=== PATIENT | female | born 1980 | race Two or more races ===

== ENCOUNTER 2019-02-12 17:52 | Emergency (ER) | payer MEDICAID ==
[~2019-02-12] VITALS: Ht 180.3 cm; Wt 136.1 kg
[2019-02-12 18:00] VITALS: BP 133/72
--- NOTE | 2019-02-12 18:22 | PHYS DOC ---
Past Medical History Past Medical History: Diabetes-Type II, Hypertension, Hypothyroid (THANIA LEAHY) Past Surgical History: No Surgical History (THANIA LEAHY) Alcohol Use: None Drug Use: None (THANIA LEAHY) Attending Signature I have participated in the care of this patient and I have reviewed and agree with all pertinent clinical information above including history, exam, and recommendations. (DIAMOND LARSEN MD) Adult General Chief Complaint Chief Complaint: COUGH HPI HPI Patient is a 39 year old F who is here today with cough, congestion, fever and body aches that started this morning. Her kids are at home and dx with influenza and on Tamiflu. (THANIA LEAHY) Review of Systems Review of Systems Constitutional: Reports fever and chills. Eyes: Denies change in visual acuity, redness, or eye pain HENT: Reports nasal congestion and sore throat Respiratory: Reports cough . Denies shortness of breath Cardiovascular: Denies chest pain GI: Denies abdominal pain, nausea, vomiting, bloody stools or diarrhea : Denies dysuria or hematuria Musculoskeletal: Denies back pain or neck pain. Reports body aches. Integument: Denies rash or skin lesions Neurologic: Denies headache, focal weakness or sensory changes All other systems were reviewed and found to be within normal limits, except as documented in this note. (THANIA LEAHY) Allergies Allergies Allergies Coded Allergies Type Severity Reaction Last Updated Verified No Known Drug Allergies 02/12/19 No (DIAMOND LARSEN MD) Physical Exam Physical Exam Constitutional: Well developed, well nourished, no acute distress, non-toxic appearance. HENT: Normocephalic, atraumatic, bilateral external ears normal. Clear nasal drainage, mild erythema of oropharynx. Eyes: PERRLA, EOMI, conjunctiva normal, no discharge. Neck: Normal range of motion, no tenderness, supple, no stridor. Cardiovascular:Heart rate regular rhythm, no murmur Lungs & Thorax: Bilateral breath sounds clear to auscultation . Hard cough noted. Abdomen: Bowel sounds normal, soft, no tenderness, no masses, no pulsatile masses. Skin: Warm, dry, no erythema, no rash. Back: No tenderness, no CVA tenderness. Extremities: No tenderness, no cyanosis, no clubbing, ROM intact, no edema. Neurologic: Alert and oriented X 3, normal motor function, normal sensory function, no focal deficits noted. Psychologic: Affect normal, judgement normal, mood normal. (THANIA LEAHY) Current Patient Data Vital Signs Vital Signs Date Time Temp Pulse Resp B/P (MAP) Pulse Ox O2 Delivery O2 Flow Rate FiO2 02/12/19 18:00 98.7 90 18 133/72 (92) 96 Room Air 98.7 (DIAMOND LARSEN MD) Lab Values Laboratory Tests Test 02/12/19 18:05 Influenza Type A Antigen Negative (NEGATIVE) Influenza Type B Antigen Negative (NEGATIVE) (DIAMOND LARSEN MD) Lab Values Laboratory Tests Test 02/12/19 18:05 Influenza Type A Antigen Negative (NEGATIVE) Influenza Type B Antigen Negative (NEGATIVE) (THANIA LEAHY) EKG EKG [] (THANIA LEAHY) Radiology/Procedures Radiology/Procedures [] (THANIA LEAHY) Course & Med Decision Making Course & Med Decision Making Pertinent Labs and Imaging studies reviewed. (See chart for details) Pt's flu swab is negative, but kids at home are positive for influenza and on Tamiflu. Will cover at this time due to pt request. Discussed pushing fluids and rest and OCT cough and cold remedies. Pt to return with any worsening symptoms. (THANIA LEAHY) Dragon Disclaimer Dragon Disclaimer This electronic medical record was generated, in whole or in part, using a voice recognition dictation system. (THANIA LEAHY) Departure Departure Impression: Primary Impression: Influenza Disposition: 01 HOME, SELF-CARE Condition: STABLE Referrals: NO PCP (PCP) Patient Instructions: Influenza A (H1N1) Additional Instructions: Your swabs today were negative for flu, however with children at home who were positive, it is highly likely that you also have influenza and the viral load was not high enough to test positive at this time. We will treat you for flu. Scripts Codeine Phosphate/Guaifenesin (Guaifen-Codeine 200-20 mg/10Ml) 10 Ml Liquid 10 ML PO Q6-8HRS PRN for COUGH for 7 Days, #120 LIQUID Prov: THANIA LEAHY 02/12/19 Oseltamivir Phosphate (TAMIFLU) 75 Mg Capsule 1 CAP PO BID, #10 CAP Prov: TAHNIA LEAHY 02/12/19 THANIA LEAHY Feb 12, 2019 18:22 DIAMOND LARSEN MD Feb 15, 2019 18:07
[2019-02-12 18:35] LABS: INFLUENZA A PATIENT NEGATIVE (NEGATIVE); INFLUENZA B PATIENT NEGATIVE (NEGATIVE)
[2019-02-12] MEDS ORDERED: CODE10LI PO (19:09)
[2019-02-12] MEDS ORDERED: OSEL75CA PO (19:09)
== END 2019-02-12 19:40 | disposition home or self-care (01) ==
LOC: ER 17:52
DX: J11.1 Influenza due to unidentified influenza virus with other respiratory manifestations (principal); E11.9 Type 2 diabetes mellitus without complications; E03.9 Hypothyroidism, unspecified; I10 Essential (primary) hypertension
CPT/HCPCS: 87804; 99284

== ENCOUNTER 2019-07-24 11:02 | Emergency (ER) | payer MEDICAID, OTHER ==
[~2019-07-24] VITALS: Ht 180.3 cm; Wt 140.0 kg
[~2019-07-24 11:02] MED LIST: CODE10LI PO; OSEL75CA PO
[2019-07-24 11:10] VITALS: BP 142/81
[2019-07-24] MEDS ORDERED: HYDROcodone/APAP 5/325MG 1 TAB TABLET PO ONE (12:15)
--- NOTE | 2019-07-24 12:25 | PHYS DOC ---
Past Medical History Past Medical History: Diabetes-Type II Additional Past Medical Histor: DMII "BUT NOT ANYMORE" Past Surgical History: Other Additional Past Surgical Histo: LEFT LEG Smoking Status: Never Smoker Alcohol Use: Sober Drug Use: None General Adult EDM: Chief Complaint: LOWER EXT PAIN HPI: HPI: Patient is a 39 year old female who presents with patient states that she has right behind the knee pain that sometimes will radiate down and sometimes radiate up and is hard to walk on the extremity due to this. She states that sharp and shooting. It is anytime she moves the knee or walks. Denies injury. Is been like this for the last week. She states she is been taking ibuprofen with no relief. Patient denies coolness of the extremity, temperature change, skin color change, numbness or tingling, chest pain, shortness of air, Abdominal pain, nausea, vomiting, diarrhea, cough, fever. Patient rates her pain 8 out of 10. Review of Systems: Review of Systems: Musculoskeletal: Denies back pain. Right knee joint pain. [] Heart Score: Risk Factors: Risk Factors: DM, Current or recent (<one month) smoker, HTN, HLP, family history of CAD, obesity. Risk Scores: Score 0 - 3: 2.5% MACE over next 6 weeks - Discharge Home Score 4 - 6: 20.3% MACE over next 6 weeks - Admit for Clinical Observation Score 7 - 10: 72.7% MACE over next 6 weeks - Early Invasive Strategies Current Medications: Current Medications Medications (Trade) Dose Ordered Sig/[facility] Start Time Stop Time Status Last Admin Dose Admin Acetaminophen/ Hydrocodone Bitart (Lortab 5/325) 1 tab 1X ONCE 07/24/19 12:15 07/24/19 12:16 DC Allergies: Allergies: Allergies Coded Allergies Type Severity Reaction Last Updated Verified No Known Drug Allergies 02/12/19 No Physical Exam: PE: Constitutional: Well developed, well nourished, no acute distress, non-toxic appearance. [] HENT: Normocephalic, atraumatic, bilateral external ears normal, oropharynx moist, no oral exudates, nose normal. [] Eyes: PERRLA, EOMI, conjunctiva normal, no discharge. [] Neck: Normal range of motion, no tenderness, supple, no stridor. [] Cardiovascular:Heart rate regular rhythm, no murmur [] Lungs & Thorax: Bilateral breath sounds clear to auscultation [] Abdomen: Bowel sounds normal, soft, no tenderness, no masses, no pulsatile masses. [] Skin: Warm, dry, no erythema, no rash. [] Back: No tenderness, no CVA tenderness. [] Extremities: No tenderness, no cyanosis, no clubbing, ROM intact, no edema. [] Neurologic: Alert and oriented X 3, normal motor function, normal sensory function, no focal deficits noted. [] Psychologic: Affect normal, judgement normal, mood normal. [] Normal physical exam Current Patient Data: Vital Signs: Vital Signs Date Time Temp Pulse Resp B/P (MAP) Pulse Ox O2 Delivery O2 Flow Rate FiO2 07/24/19 11:10 97.6 73 16 142/81 (101) 97 Room Air 97.6 EKG: EKG: [] Radiology/Procedures: Radiology/Procedures: [] Impression: [facility] [address] [place], [place] [id number] IMAGING REPORT Signed PATIENT: FRANCISCO ARRIETA ACCOUNT: [id number] : 1980 LOCATION: ER AGE: 39 SEX: F EXAM STATUS: REG ER ORD. PHYSICIAN: BERENICE BERNARDO APRN REASON: pain behind right leg, check for DVT and Bakers cyst PROCEDURE: VENOUS LOWER EXTREMITY RIGHT VENOUS LOWER EXTREMITY RIGHT 07/24/2019 12:05 PM Pain behind the right leg Reason: pain behind right leg, check for DVT and Bakers cyst Comparison: None. Technique: Multiple grayscale, color Doppler, and spectral Doppler sonographic images of the lower extremity venous structures were obtained. Findings: The right common femoral, femoral, and popliteal veins exhibit normal compression, respiratory phasicity, and augmentation. No intraluminal thrombi are identified. Color Doppler flow is demonstrated in the right posterior tibial veins. Popliteal cyst measures 3.8 x 2.9 x 1.2 cm without significant internal complexity. Greater saphenous patent at the saphenofemoral junction. Impression: 1. No evidence of deep venous thrombosis. 2. Simple popliteal cyst measures 3.8 x 2.9 x 1.2 cm. Electronically signed by: Dorys Darden MD (07/24/2019 12:34 PM) [facility] DICTATED and SIGNED BY: DORYS DARDEN MD DATE: 07/24/19 1234 Course & Med Decision Making: Course & Med Decision Making Pertinent Labs and Imaging studies reviewed. (See chart for details) No unilateral swelling. Skin pink warm and dry. Pedal pulses present. Cap refill less than 3 seconds. Full range of motion of the knee joint without complication but pain does occur behind the knee with movement. Lungs are clear auscultation all lobes. Patient states she is to be diabetic but is no longer diabetic. Full sensations. Patient did have to have surgery on the left leg years ago and she states that leg chronically hurts. No calf tenderness with palpation. Perc negative. [] Dragon Disclaimer: Dragon Disclaimer: This electronic medical record was generated, in whole or in part, using a voice recognition dictation system. Departure Departure Impression: Primary Impression: Nash's cyst of knee Qualified Codes: M71.21 - Synovial cyst of popliteal space [Nash], right knee Disposition: HOME, SELF-CARE Condition: STABLE Referrals: NO PCP (PCP) Patient Instructions: Nash's Cyst Additional Instructions: Follow-up with your primary care doctor or the orthopedic doctor. Take medication as prescribed and with food. Do not drink alcohol or drive heavy machinery when taking this medication. Scripts Hydrocodone/Apap 5-325 (NORCO 5-325 TABLET) 1 Each Tablet 1 TAB PO PRN Q6HRS PRN for PAIN, #10 TAB 0 Refills Prov: BERENICE BERNARDO APRN 07/24/19 Justicifation of Admission Dx: Justifications for Admission: Justification of Admission Dx: N/A BERENICE BERNARDO APRN Jul 24, 2019 12:25
--- NOTE | 2019-07-24 12:37 | RAD ---
VENOUS LOWER EXTREMITY RIGHT 07/24/2019 12:05 PM Pain behind the right leg Reason: pain behind right leg, check for DVT and Bakers cyst Comparison: None. Technique: Multiple grayscale, color Doppler, and spectral Doppler sonographic images of the lower extremity venous structures were obtained. Findings: The right common femoral, femoral, and popliteal veins exhibit normal compression, respiratory phasicity, and augmentation. No intraluminal thrombi are identified. Color Doppler flow is demonstrated in the right posterior tibial veins. Popliteal cyst measures 3.8 x 2.9 x 1.2 cm without significant internal complexity. Greater saphenous patent at the saphenofemoral junction. Impression: 1. No evidence of deep venous thrombosis. 2. Simple popliteal cyst measures 3.8 x 2.9 x 1.2 cm. Electronically signed by: Debbi Odonnell MD (07/24/2019 12:34 PM) [facility]
[2019-07-24] MEDS ORDERED: HYDR-3164 PO (12:44)
== END 2019-07-24 12:50 | disposition home or self-care (01) ==
LOC: ER 11:02
DX: M71.21 Synovial cyst of popliteal space [Baker], right knee (principal); E11.9 Type 2 diabetes mellitus without complications
CPT/HCPCS: 93971; 99284

== ENCOUNTER 2019-09-17 18:50 | Emergency (ER) | payer OTHER ==
[~2019-09-17] VITALS: Ht 180.3 cm; Wt 181.8 kg
[~2019-09-17 18:50] MED LIST changes: +HYDR-3164 PO
[2019-09-17] MEDS ORDERED: ACETAMINOPHEN 500 MG TABLET PO ONE (20:00)
[2019-09-17] MEDS ORDERED: DEXAMETHASONE 4 MG TABLET PO ONE (20:00)
[2019-09-17 20:16] LABS: BILIRUBIN,URINE NEGATIVE (NEG); CLARITY,URINE CLEAR; COLOR,URINE YELLOW; NITRITE,URINE NEGATIVE (NEG); PH,URINE 5.5 (<5.0-8.0); PROTEIN,URINE NEGATIVE (NEG-TRACE); UROBILINOGEN,URINE 0.2 mg/dL (0.2 mg/dL)
[2019-09-17 20:23] LABS: SQUAMOUS EPITHELIAL CELL,UR MOD /LPF
[2019-09-17 20:24] LABS: BACTERIA,URINE MANY /HPF (0-FEW)
--- NOTE | 2019-09-17 20:37 | RAD ---
AP chest. HISTORY: Cough, short of air AP view was taken of the chest. Heart is normal in size. There is no pleural effusion. There are no acute infiltrates. IMPRESSION: 1. No acute infiltrates. Electronically signed by: Jean Cho MD (09/17/2019 8:34 PM) [facility]
--- NOTE | 2019-09-17 20:43 | PHYS DOC ---
Past Medical History Past Medical History: Diabetes-Type II Additional Past Medical Histor: DMII "BUT NOT ANYMORE" Past Surgical History: Other Additional Past Surgical Histo: LEFT LEG Smoking Status: Never Smoker Alcohol Use: Sober Drug Use: None General Adult EDM: Chief Complaint: SHORTNESS OF BREATH HPI: HPI: 39-year-old female presents with 2-day history of fever, fatigue, nonproductive cough, and shortness of breath. Patient denies known exposure to COVID-19. Patient reports she works at [employer]. Patient reports concerned that she might have been exposed to COVID. Denies . Denies trauma. Review of Systems: Review of Systems: Constitutional: Reports subjective fever, chills, and generalized malaise Eyes: Denies redness or eye pain HENT: Denies nasal congestion or sore throat Respiratory: Reports nonproductive cough and shortness of breath Cardiovascular: Denies chest pain or palpitations GI: Denies abdominal pain, nausea, or vomiting : Denies dysuria or hematuria Musculoskeletal: Denies back pain or joint pain Integument: Denies rash or skin lesions Neurologic: Denies headache, focal weakness or sensory changes Complete systems were reviewed and found to be within normal limits, except as documented in this note. Current Medications: Current Medications Medications (Trade) Dose Ordered Sig/[facility] Start Time Stop Time Status Last Admin Dose Admin Acetaminophen (Tylenol) 500 mg 1X ONCE 09/17/19 20:00 09/17/19 20:01 DC 09/17/19 19:58 500 MG Dexamethasone (Decadron) 10 mg 1X ONCE 09/17/19 20:00 09/17/19 20:01 DC 09/17/19 19:58 10 MG Allergies: Allergies: Allergies Coded Allergies Type Severity Reaction Last Updated Verified No Known Drug Allergies 02/12/19 No Physical Exam: PE: Constitutional: Well developed, well nourished, no acute distress, non-toxic appearance HENT: Normocephalic, atraumatic Eyes: Conjunctiva normal, no discharge Neck: Normal range of motion, supple, no meningeal signs Lungs & Thorax: No respiratory distress, equal chest rise and fall Abdomen: Soft, no tenderness, no guarding/rebound tenderness/distention Skin: Warm, dry, no erythema, no rash Extremities: No tenderness, ROM intact, no edema Neurologic: Alert and oriented X 3, no focal deficits noted Psychologic: Affect normal, judgment normal Current Patient Data: Labs: Laboratory Tests Test 09/17/19 20:02 09/17/19 20:09 Urine Collection Type Unknown Urine Color Yellow Urine Clarity Clear Urine pH 5.5 (<5.0-8.0) Urine Specific [place] 1.020 (1.000-1.030) Urine Protein Negative mg/dL (NEG-TRACE) Urine Glucose (UA) Negative mg/dL (NEG) Urine Ketones (Stick) Negative mg/dL (NEG) Urine Blood Small (NEG) Urine Nitrite Negative (NEG) Urine Bilirubin Negative (NEG) Urine Urobilinogen Dipstick 0.2 mg/dL (0.2 mg/dL) Urine Leukocyte Esterase Small (NEG) Urine RBC 3-5 /HPF (0-2) Urine WBC 1-4 /HPF (0-4) Urine Squamous Epithelial Cells Mod /LPF Urine Bacteria Many /HPF (0-FEW) Urine Mucus Mod /LPF POC Urine HCG, Qualitative Hcg negative (Negative) EKG: EKG: [] Radiology/Procedures: Radiology/Procedures: PROCEDURE: CHEST AP ONLY AP chest. HISTORY: Cough, short of air AP view was taken of the chest. Heart is normal in size. There is no pleural effusion. There are no acute infiltrates. IMPRESSION: 1. No acute infiltrates. Electronically signed by: Jean Cho MD (09/17/2019 8:34 PM) [facility] Course & Med Decision Making: Course & Med Decision Making Pertinent Labs and Imaging studies reviewed. (See chart for details) Patient presents with HPI and physical exam concerning for possible COVID-19 infection. COVID-[address] O2 sats stable on room air. Patient is currently febrile. Fever addressed. Symptomatic treatment provided with oral dexamethasone.. COVID testing pending. UA without acute process. Urine negative. Chest x-ray without acute process. Patient stable for discharge with outpatient follow-up with PCP. Discussed f indings and plan with patient, who acknowledges understanding and agreement. COVID-19 CRITERIA: The patient was evaluated during the global COVID-19 pandemic, and that diagnosis was suspected/considered upon their initial presentation. Their evaluation, treatment and testing was consistent with current guidelines for patients who present with complaints or symptoms that may be related to COVID-19. Dragon Disclaimer: Dragon Disclaimer: This electronic medical record was generated, in whole or in part, using a voice recognition dictation system. Departure Departure Impression: Primary Impression: Suspected 2019 novel coronavirus infection Disposition: 01 HOME, SELF-CARE Condition: STABLE Referrals: NO PCP (PCP) Patient Instructions: Incentive Spirometer, Viral Syndrome Additional Instructions: You have been tested for or diagnosed with COVID-19. It is an infection caused by a new type of coronavirus. COVID-19 will cause cold-like or mild flu symptoms in most. It can cause more severe symptoms like problems breathing in some. There is no treatment for COVID-19. The body will clear the infection over time. Self-care will help to ease discomfort. Steps to Take: Self-Care Rest as needed. Healthy habits may help you feel better. Steps include: Choose healthy foods including fruits and vegetables. Drink water throughout the day. Get plenty of sleep each night. If you smoke, try to quit. It may ease breathing. Avoid alcohol. Keep Others Healthy The virus can spread to others. Droplets are released every time you sneeze or cough. The droplets can get into the mouth, nose, or eyes of people near you and lead to infection. To lower the chances of spreading COVID-19 to others: Stay at home until your doctor has said it is safe to leave. If you tested positive this will mean staying isolated until both of the following are true: At least 7 days have passed since the start of illness. You are free of fever for at least 72 hours without the use of medicine. During this time: - Avoid public areas, events, or transportation. Do not return to work or school until your doctor has said it is safe to do so. - Call ahead if you need to go to a medical center. Let them know you may have COVID-19. It will help them guide you where to go. They may also ask you to wear a facemask when you come to the office. - If you call for emergency medical services, let them know you may have COVID- 19. While at home: - Try to avoid close contact with others. Stay about 6 feet away. - If possible, spend most of your time in a separate room from others. - Use a face mask if you will be in close contact with others such as sharing a room or vehicle. - Have someone wipe down common surfaces in the home. Use household assistant film editor every day on areas like doorknobs, counters, or sinks. - Cough or sneeze into a tissue. Throw the tissue away right after use. If a tissue is not available, cough or sneeze into your elbow. - Wash your hands often. Wash them after sneezing or coughing. Use soap and water and wash for at least 20 seconds. Alcohol based hand casing cleaner can be used if soap and water is not available. - Do not prepare food for others. Avoid sharing personal items like forks, spoons, or toothbrushes. - Avoid close contact with pets while you are sick. There is no evidence of the virus passing to pets. This is a safety step until more is known about this virus. Isolation can be frustrating. Social interaction can help. Keep in touch with friends and family through phone and tech options. You can still interact with others in your home, just keep a safe distance of about 6 feet. Follow-up: Your doctors office will check in with you to see if there are any changes in your health. You may be asked to keep track of symptoms to share with them. They will also let you know when you are clear to be in public again. Problems to Look Out For: Contact your doctor if your recovery is not going as you expect. Get emergency care if you have problems such as: - Trouble breathing - Nonstop chest pain or pressure - Changes in awareness, confusion, or problems waking - Lips or face have bluish color - Worsening of symptoms If you think you have an emergency, call for emergency medical services right away. As taken from [facility] Justicifation of Admission Dx: Justifications for Admission: Justification of Admission Dx: N/A COVID-19 Assessment: COVID-19 Patient Risks: Age 65 or older: No Sign of co-morbidity: Yes Exp to person + for COVID: No Exp to PUI: No Travel from affected area: No Lower respiratory symptoms: Yes Fever: Yes PPE Use: Full PPE with N95 mask or PAPR: Yes KIRSTEN FAM DO Sep 17, 2019 20:43
[2019-09-17 20:54] VITALS: BP 107/64
== END 2019-09-17 21:06 | disposition home or self-care (01) ==
LOC: ER 18:50
DX: U07.1 COVID-19 (principal); R06.02 Shortness of breath; R05 Cough; E11.9 Type 2 diabetes mellitus without complications; Z98.890 Other specified postprocedural states
CPT/HCPCS: 71045; 81001; 81025; 87086; 99284; C9803; U0003

== ENCOUNTER 2020-12-21 00:59 | Emergency (ER) | payer OTHER ==
[~2020-12-21] VITALS: Ht 180.3 cm; Wt 172.7 kg
[2020-12-21 01:43] LABS: BASO % 1 % (0-3); EOS # 0.2 x10^3/uL (0.0-0.7); EOS % 5 % (0-3); HEMATOCRIT 38.1 % (36.0-47.0); HEMOGLOBIN 12.7 g/dL (12.0-15.5); LYMPH % 43 % (24-48); MEAN CORPUSCULAR HEMOGLOBIN 29 pg (25-35); MEAN CORPUSCULAR HGB CONC 33 g/dL (31-37); MEAN CORPUSCULAR VOLUME 86 fL (79-100); MONO # 0.5 x10^3/uL (0.0-1.1); MONO % 10 % (0-9); NEUT % 42 % (31-73); PLATELET COUNT 251 x10^3/uL (140-400); RED BLOOD COUNT 4.43 x10^6/uL (3.50-5.40); RED CELL DISTRIBUTION WIDTH 14.3 % (11.5-14.5); WHITE BLOOD COUNT 4.7 x10^3/uL (4.0-11.0)
[2020-12-21 01:50] LABS: CALCIUM 8.3 mg/dL (8.5-10.1); CREATININE 0.6 mg/dL (0.6-1.0); GFR 111.9; POTASSIUM 3.8 mmol/L (3.5-5.1)
--- NOTE | 2020-12-21 01:50 | EKG ---
[facility] [address] [place] [id number] Test Date: 2020-12-21 Test Time: 01:08:21 Pat Name: FRANCISCO ARRIETA Department: Room: Gender: F [employer]er: : 1980 Requested By: NINI VALDEZ Order Number: [id number] Reading MD: Triston Santiago Measurements Intervals [place] Rate: 62 P: 41 CT: 206 QRS: -5 QRSD: 102 T: 39 QT: 442 QTc: 451 Interpretive Statements SINUS RHYTHM LEFTWARD AXIS LOW LIMB LEAD VOLTAGE NON SPECIFIC ST-T WAVE CHANGES RI6.02 No previous ECG available for comparison Electronically Signed On 12-24-2020 9:43:09 MEDICINE TECHNOLOGIST by Triston Santiago
[2020-12-21 01:52] LABS: PREG TEST PT QUAL NEGATIVE (NEG)
--- NOTE | 2020-12-21 01:53 | PHYS DOC ---
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 States she has been stressed out a lot with work and her children. Has no active chest discomfort in the ed-states her chest pain has been coming and going for the past few months. Denies any head or neck injury. No history of alcohol, c ocaine or meth use or tobacco dependence. Was vaccinated for Covid a few months ago. No known history of Covid. No personal or family history of AAA, AAD, CTD (ehlos danlos or marfans), cardiac arrhythmias (need for AICD), CAD, sudden or unexplainable (under 50 years of age or with exertion), or clotting disorders. Review of Systems: Review of Systems: Constitutional: Denies fever or chills. [] Eyes: Denies change in visual acuity. [] HENT: Denies nasal congestion or sore throat. [] Respiratory: Denies cough or shortness of breath. [] Cardiovascular: Denies syncope or edema. [] GI: Denies abdominal pain, nausea, vomiting, bloody stools or diarrhea. [] : Denies dysuria or vaginal bleeding Musculoskeletal: Denies back pain or joint pain. [] Integument: Denies rash or diaphoresis Neurologic: Denies headache or neck pain Endocrine: Denies polyuria or polydipsia. [] Lymphatic: Denies swollen glands. [] Psychiatric: Denies depression or anxiety. [] Heart Score: C/O Chest Pain: Yes HEART Score for Chest Pain: HEART Score for Chest Pain Response (Comments) Value History Slighlty/Non-Suspicious 0 ECG Nonspecific Repolarizatio 1 Age < 45 0 Risk Factors 1 or 2 Risk Factors 1 Troponin < Normal Limit 0 Total 2 Risk Factors: Risk Factors: DM, Current or recent (<one month) smoker, HTN, HLP, family history of CAD, obesity. Risk Scores: Score 0 - 3: 2.5% MACE over next 6 weeks - Discharge Home Score 4 - 6: 20.3% MACE over next 6 weeks - Admit for Clinical Observation Score 7 - 10: 72.7% MACE over next 6 weeks - Early Invasive Strategies Allergies: Allergies: Allergies Coded Allergies Type Severity Reaction Last Updated Verified No Known Drug Allergies 02/12/19 No Physical Exam: PE: Constitutional: Well developed, well nourished, no acute distress, non-toxic appearance. HENT: Normocephalic, atraumatic, Eyes: EOMI, conjunctiva normal, no discharge. Neck: Normal range of motion, supple, Cardiovascular: S1/2 present, regular rhythm Lungs & Thorax: Speaking in full sentences, bilateral equal chest rise, no tachypnea or increased work of breathing Abdomen: soft, no tenderness, Skin: Warm, dry, no erythema, no rash. [] Back: No tenderness, no CVA tenderness. [] Extremities: No tenderness, no cyanosis, no lower extremity edema Neurologic: Alert and oriented X 3, normal motor function, normal sensory function, no focal deficits noted. [] Psychologic: Affect normal, judgement normal, mood normal. [] Current Patient Data: Labs: Laboratory Tests Test 12/21/20 01:30 White Blood Count 4.7 x10^3/uL (4.0-11.0) Red Blood Count 4.43 x10^6/uL (3.50-5.40) Hemoglobin 12.7 g/dL (12.0-15.5) Hematocrit 38.1 % (36.0-47.0) Mean Corpuscular Volume 86 fL (79-100) Mean Corpuscular Hemoglobin 29 pg (25-35) Mean Corpuscular Hemoglobin Concent 33 g/dL (31-37) Red Cell Distribution Width 14.3 % (11.5-14.5) Platelet Count 251 x10^3/uL (140-400) Neutrophils (%) (Auto) 42 % (31-73) Lymphocytes (%) (Auto) 43 % (24-48) Monocytes (%) (Auto) 10 % (0-9) H Eosinophils (%) (Auto) 5 % (0-3) H Basophils (%) (Auto) 1 % (0-3) Neutrophils # (Auto) 2.0 x10^3/uL (1.8-7.7) Lymphocytes # (Auto) 2.0 x10^3/uL (1.0-4.8) Monocytes # (Auto) 0.5 x10^3/uL (0.0-1.1) Eosinophils # (Auto) 0.2 x10^3/uL (0.0-0.7) Basophils # (Auto) 0.0 x10^3/uL (0.0-0.2) Laboratory Tests 12/21/20 01:30 EKG: EKG: Sinus rhythm 62 bpm, left axis deviation, first-degree AV block with MO interval 206, T wave inversion V2 and V3, no ST elevation or ST depression, no active chest pain in emergency department Sinus rhythm 63 bpm, axis deviation, Persky AV block MO interval 212, T wave inv ersion V2 and V3, no ST elevation ST depression, no active chest pain Radiology/Procedures: Radiology/Procedures: IMAGING REPORT Signed PATIENT: FRANCISCO ARRIETA ACCOUNT: [id number] : 1980 LOCATION: ER AGE: 40 SEX: F EXAM STATUS: REG ER ORD. PHYSICIAN: NINI VALDEZ DO REASON: cp PROCEDURE: PORTABLE CHEST 1V XR CHEST 1V 12/21/2020 1:40 AM INDICATION: Chest pain COMPARISON: 09/17/2019 TECHNIQUE: Portable frontal view of the chest is provided. FINDINGS: The cardiomediastinal silhouette is within normal limits. Lungs are clear. There are no significant pleural effusions. There is no pulmonary vascular congestion. No pneumothorax. No suspicious osseous abnormality. IMPRESSION: There is no acute cardiopulmonary process. Electronically signed by: Dorys Odonnell MD (12/21/2020 1:51 AM) [facility] DICTATED and SIGNED BY: DORYS ODONNELL MD DATE: 12/21/20 [id number] 0 Impression: PERC rule for pulmonary embolus 0 criteria No need for further workup, as <2% chance of PE. If no criteria are positive and clinicians pre-test probability is <15%, PERC Rule criteria are satisfied. Course & Med Decision Making: Course & Med Decision Making Pertinent Labs and Imaging studies reviewed. (See chart for details) Concern for atypical, intermittent chest pain, although pt has been asymptomatic in the emergency department-has no active chest pain. Also reports bilateral upper extremity paresthesias no neck pain or injury. Labs: Electrolytes unrema rkable. Troponin negative. D-dimer within normal limits. Perc rule negative. Unremarkable chest x-ray. Patient hemodynamically stable emergency department. Low risk for Mace. Will discharge home with strict ED return precautions were given for chest pressure or tightness, neurologic deficits, hemoptysis or syncope. Encouraged urgent outpatient follow-up with PMD and cardiology for nonemergent evaluation. Life-threatening processes were considered but are low suspicion at this time, given history, physical exam and ED workup. Pt was educated on all prescription medications and adverse effects. All patient's questions were answered and pt was stable at time of discharge. Life/limb-threatening differential includes but is not limited to, acute myocardial infarction, aortic dissection, congestive heart failure, esophageal injury including rupture, surgical abdomen, arrhythmia, cardiomyopathy, myocarditis, pericarditis, peptic ulcer disease, pneumomediastinum, pneumonia, pneumothorax, pulmonary embolus, unstable angina, rib fracture, contusion, pericardial tamponade or effusion, traumatic injury including mediastinal hemorrhage or hematoma, or pulmonary contusion. I have spoken with the patient and/or caregivers. I explained the patient's condition, diagnoses and treatment plan based on the information available to me at this time. I have answered the patient and/or caregiver's questions and addressed any concerns. The patient and/or caregivers have a good understanding of patient's diagnosis, condition and treatment plan as can be expected at this point. Vital signs have been stable. Patient's condition is stable and appropriate for discharge from the emergency department. Patient will pursue further outpatient evaluation with primary care physician or other designated or consulting physician as outlined in the discharge instructions. The patient and/or caregivers are agreeable to this plan of care and follow-up instructions have been explained in detail. The patient and/or caregivers have received these instructions in written form and have expressed an understanding of the discharge instructions. The patient and/or caregivers are aware that any significant change of condition or worsening of symptoms should prompt immediate return to this or the closest emergency department or call to 911. Jennie Disclaimer: Jennie Disclaimer: This electronic medical record was generated, in whole or in part, using a voice recognition dictation system. Departure Departure Impression: Primary Impression: Atypical chest pain Additional Impression: Anxiety Disposition: 01 HOME / SELF CARE / HOMELESS Condition: STABLE Referrals: NO PCP (PCP) Follow-up with your primary care physician in 24 to 48 hours OR FOLLOW UP WITH FAMILY MEDICINE: [address], [address] [place] [address] Patient Instructions: Anxiety and Panic Attacks, Chest Pain (Nonspecific) Additional Instructions: FOLLOW UP WITH CARDIOLOGY: FOR DEFINITIVE MANAGEMENT of chest pain [facility] [address] [place] [address] EMERGENCY DEPARTMENT GENERAL DISCHARGE INSTRUCTIONS Thank you for coming to [facility] Emergency Department (ED) today and trusting us with you care. We trust that you had a positive experience in our Emergency Department. If you wish to speak to the department management, you may call the Director at [phone]. YOUR FOLLOW UP INSTRUCTIONS ARE FOLLOWS: 1. Do you have a private Doctor? If you do not have a private doctor, please ask for a resource list of physicians or clinics that may be able to assist you with follow up care. 2. The Emergency Physicain has interpreted your x-rays. The X-Ray specialist will also review them. If there is a change in the findings, you will be notified in 48 hours when at all possible. 3. A lab test or culture has been done, your results will be reviewed and you will be notified if you need a change in treatment. ADDITIONAL INSTRUCTIONS AND INFORMATION: 1. Your care today has been supervised by a physician who is specially trained in emergency care. Many problems require more than one evaluation for a complete diagnosis and treatment. We recommend that you schedule your follow up appointment as recommended to ensure complete treatment of you illness or injury. If you are unable to obtain follow up care and continue to have a problem, or if your condition worsens, we recommend that you return to the ED. 2. We are not able to safely determine your condition over the phone nor are we able to give sound medical advice over the phone. For these safety reasons, if you call for medical advice we will ask you to come to the ED for further evaluation. 3. If you have any questions regarding these discharge instructions please call the ED at [phone]. SAFETY INFORMATION: In the interest of safety, wellness, and injury prevention; we encourage you to wear your sealbelt, if you smoke; quite smoking, and we encourage family to use a protective helmet for bicycling and other sporting events that present an increased risk for head injury. IF YOUR SYMPTOMS WORSEN OR NEW SYMPTOMS DEVELOP, OR YOU HAVE CONCERNS ABOUT YOUR CONDITION; OR IF YOUR CONDITION WORSENS WHILE YOU ARE WAITING FOR YOUR FOLLOW UP APPOINTMENT; EITHER CONTACT YOUR PRIMARY CARE DOCTOR, THE PHYSICIAN WHOSE NAME AND NUMBER YOU WERE GIVEN, OR RETURN TO THE ED IMMEDIATELY. Scripts Hydroxyzine Hcl (HYDROXYZINE HCL) 25 Mg Tablet 1 TAB PO TID PRN for ANXIETY, #20 TAB Prov: NINI VALDEZ DO 12/21/20 NINI VALDEZ DO Dec 21, 2020 01:53
--- NOTE | 2020-12-21 01:54 | RAD ---
XR CHEST 1V 12/21/2020 1:40 AM INDICATION: Chest pain COMPARISON: 09/17/2019 TECHNIQUE: Portable frontal view of the chest is provided. FINDINGS: The cardiomediastinal silhouette is within normal limits. Lungs are clear. There are no significant pleural effusions. There is no pulmonary vascular congestion. No pneumothora x. No suspicious osseous abnormality. IMPRESSION: There is no acute cardiopulmonary process. Electronically signed by: Debbi Odonnell MD (12/21/2020 1:51 AM) [facility]
[2020-12-21 01:56] LABS: ALBUMIN/GLOBULIN RATIO 0.7 (1.0-1.7); MAGNESIUM 1.9 mg/dL (1.8-2.4); TOTAL BILIRUBIN 0.3 mg/dL (0.2-1.0); TOTAL PROTEIN 7.2 g/dL (6.4-8.2)
[2020-12-21 02:02] LABS: AMPHETAMINE/METHAMPHETAMINE NEG (NEG); BARBITURATES NEG (NEG); BENZODIAZEPINES NEG (NEG); CANNABINOIDS NEG (NEG); COCAINE NEG (NEG); METHADONE POS (NEG); OPIATES NEG (NEG); PHENCYCLIDINE NEG (NEG)
[2020-12-21] MEDS ORDERED: HYDR25TA PO (03:13)
[2020-12-21 03:48] VITALS: BP 126/85
--- NOTE | 2020-12-21 05:59 | EKG ---
[facility] [address] [place] [address] Test Date: 2020-12-21 Test Time: 03:20:37 Pat Name: FRANCISCO ARRIETA Department: Room: Gender: F Utility Locate Technician: : 1980 Requested By: NINI VALDEZ Order Number: [id number] Reading MD: Triston Santiago Measurements Intervals [place] Rate: 63 P: 4 PA: 212 QRS: -7 QRSD: 106 T: -4 QT: 436 QTc: 449 Interpretive Statements SINUS RHYTHM LEFTWARD AXIS LOW LIMB LEAD VOLTAGE T ABNORMALITY IN ANTERIOR LEADS ABNORMAL ECG RI6.02 Compared to ECG 12/21/2020 01:08:21 T-wave abnormality now present Electronically Signed On 12-24-2020 9:42:35 [employer] by Triston Santiago
== END 2020-12-21 03:58 | disposition home or self-care (01) ==
LOC: ER 00:59
DX: R07.89 Other chest pain (principal); F41.9 Anxiety disorder, unspecified; E11.9 Type 2 diabetes mellitus without complications
CPT/HCPCS: 36415; 71045; 80053; 80307; 81025; 83690; 83735; 83880; 84484; 84703; 85025; 85379; 93005; 99285-25

== ENCOUNTER 2021-07-08 19:30 | Emergency (ER) | payer OTHER ==
[~2021-07-08] VITALS: Ht 180.3 cm; Wt 154.5 kg
[~2021-07-08 19:30] MED LIST changes: +HYDR25TA PO
[2021-07-08 20:46] LABS: BASO % 1 % (0-3); EOS # 0.2 x10^3/uL (0.0-0.7); EOS % 4 % (0-3); HEMATOCRIT 33.6 % (36.0-47.0); HEMOGLOBIN 10.9 g/dL (12.0-15.5); LYMPH # 1.7 x10^3/uL (1.0-4.8); LYMPH % 33 % (24-48); MEAN CORPUSCULAR HEMOGLOBIN 27 pg (25-35); MEAN CORPUSCULAR HGB CONC 33 g/dL (31-37); MEAN CORPUSCULAR VOLUME 81 fL (79-100); MONO # 0.4 x10^3/uL (0.0-1.1); MONO % 9 % (0-9); NEUT # 2.7 x10^3/uL (1.8-7.7); NEUT % 53 % (31-73); PLATELET COUNT 293 x10^3/uL (140-400); RED BLOOD COUNT 4.13 x10^6/uL (3.50-5.40); RED CELL DISTRIBUTION WIDTH 14.3 % (11.5-14.5)
[2021-07-08 20:54] LABS: BACTERIA,URINE MODERATE /HPF (0-FEW)
[2021-07-08 20:56] LABS: CREATININE 0.7 mg/dL (0.6-1.0); GFR 93.2; POTASSIUM 3.6 mmol/L (3.5-5.1)
[2021-07-08 20:58] LABS: PROTHROMBIN TIME PATIENT 12.3 SEC (11.7-14.0)
[2021-07-08 21:04] LABS: ALBUMIN 2.8 g/dL (3.4-5.0); ALBUMIN/GLOBULIN RATIO 0.7 (1.0-1.7); MAGNESIUM 1.5 mg/dL (1.8-2.4); TOTAL BILIRUBIN 0.3 mg/dL (0.2-1.0)
[2021-07-08 21:05] LABS: D-DIMER 0.41 ug/mlFEU (0.00-0.50)
--- NOTE | 2021-07-08 21:43 | RAD ---
EXAMINATION: US DPLX VENOUS EXTREMITY LOWER LT (LOWER EXTREMITY VENOUS ULTRASOUND) CLINICAL HISTORY: Left lower extremity pain and edema. TECHNIQUE: Sonographic grayscale images obtained of the left lower extremity deep venous system with color flow Doppler, compression, and augmentation techniques as indicated. Images obtained and store d in a permanent archive. COMPARISON: None FINDINGS: No evidence of absent flow or incompressibility within the common femoral vein, femoral vein, or popl iteal vein. Visualized calf veins appear patent on limited evaluation. IMPRESSION: No evidence of left lower extremity DVT. Electronically signed by: Martin Malave DO (07/08/2021 9:41 PM) [facility]
--- NOTE | 2021-07-08 21:58 | RAD ---
Exam: Chest 2 views INDICATION: Shortness of breath, pain TECHNIQUE: Frontal and lateral views the chest Comparisons: 12/21/2020 FINDINGS: The cardiomediastinal silhouette and pulmonary vessels are within normal limits. The lung and pleural spaces are clear. IMPRESSION: No acute cardiopulmonary process. Electronically signed by: Henny Macdonald MD (07/08/2021 9:55 PM) [place]
[2021-07-08] MEDS ORDERED: HYDROcodone/APAP 5/325MG 1 TAB TABLET PO ONE (22:30)
--- NOTE | 2021-07-08 22:44 | PHYS DOC ---
Past Medical History Past Medical History: Diabetes-Type II Additional Past Medical Histor: DMII "BUT NOT ANYMORE" Past Surgical History: Other Additional Past Surgical Histo: Left leg surgery Smoking Status: Never Smoker Alcohol Use: None Drug Use: None General Adult EDM: Chief Complaint: MULTIPLE COMPLAINTS HPI: HPI: Patient is a 41-year-old female who presents to the emergency department complaining of left lower extremity swelling and pain for the past 5 days. Patient also reports intermittent shortness of breath. Patient denies chest pains. Patient denies recent fever or chills. Patient states she does not take medications however states she was a type II diabetic but was told by her primary care physician that she no longer needed to take metformin or Lasix and took her off all medications approximately 3 to 4 months ago. Patient denies increased urinary frequency, denies dizziness, visual disturbances, syncopal or near syncopal episodes. Patient denies diaphoretic episodes, denies chest or nasal congestion. Patient denies other physical complaints or physical concerns. Review of Systems: Review of Systems: 14 body systems of review of systems have been reviewed. See HPI for pertinent positives and negative responses, otherwise all other systems are negative, nonpertinent or noncontributory. Constitutional: Negative except as outlined in HPI above. Skin: Negative except as outlined in HPI above. Eyes: Negative except as outlined in HPI above. HENT: Negative except as outlined in HPI above. Respiratory: Negative except as outlined in HPI above. Cardiovascular: Negative except as outlined in HPI above. GI: Negative except as outlined in HPI above. : Negative except as outlined in HPI above. Musculoskeletal: Negative except as outlined in HPI above. Integument: Negative except as outlined in HPI above. Neurologic: Negative except as outlined in HPI above. Endocrine: Negative except as outlined in HPI above. Lymphatic: Negative except as outlined in HPI above. Psychiatric: Negative except as outlined in HPI above. Heart Score: C/O Chest Pain: No Risk Factors: Risk Factors: DM, Current or recent (<one month) smoker, HTN, HLP, family history of CAD, obesity. Risk Scores: Score 0 - 3: 2.5% MACE over next 6 weeks - Discharge Home Score 4 - 6: 20.3% MACE over next 6 weeks - Admit for Clinical Observation Score 7 - 10: 72.7% MACE over next 6 weeks - Early Invasive Strategies Current Medications: Current Medications Medications (Trade) Dose Ordered Sig/Yvette Start Time Stop Time Status Last Admin Dose Admin Acetaminophen/ Hydrocodone Bitart (Lortab 5/325) 1 tab 1X ONCE 07/08/21 22:30 07/08/21 22:31 DC 07/08/21 22:05 1 TAB Magnesium Chloride (Mag Delay) 64 mg 1X ONCE 07/08/21 23:00 07/08/21 23:01 Allergies: Allergies: Allergies Coded Allergies Type Severity Reaction Last Updated Verified No Known Drug Allergies 07/08/21 No Physical Exam: PE: Constitutional: Well developed, well nourished, no acute distress, non-toxic appearance. 41-year-old female in no apparent distress. HENT: Normocephalic, atraumatic. Eyes: Conjunctiva normal, no discharge. Neck: Normal range of motion, no stridor. Cardiovascular: No cyanosis appreciated, distal cap refill less than 2 seconds. Regular rate and rhythm, heart sounds S1-S2 auscultation Lungs & Thorax: Patient is in no respiratory distress, no audible adventitious lung sounds appreciated. Lung sounds are clear to auscultation all lung flores. Abdomen: Nontender, no abnormalities noted. Skin: Warm, dry, no erythema, no rash. Back: No tenderness, no deformities. Extremities: No tenderness, no cyanosis, no clubbing, ROM intact, no edema. Ex cept for right lower extremity, there is swelling throughout the thigh and lower leg and foot, no erythema present, pain to palpation over calf area. 2+ bilateral pedal pulses, distal cap refill less than 2 seconds equal bilateral lower extremities. Neurologic: Alert and oriented X 3, normal motor function, normal sensory function, no focal deficits noted. Psychologic: Affect normal, judgement normal, mood normal. Current Patient Data: Labs: Laboratory Tests Test 07/08/21 19:45 07/08/21 20:10 07/08/21 21:26 Urine Collection Type Unknown Urine Color (Auto) Light yellow Urine Turbidity Clear Urine pH (Auto) 6.0 (<5.0-8.0) Urine Specific Fleming 1.021 (1.000-1.030) Urine Protein (Auto) Negative mg/dL (Negative) Urine Glucose (Auto)(UA) Negative mg/dL (Negative) Urine Ketones (Auto) Negative mg/dL (Negative) Urine Blood (Auto) Negative (Negative) Urine Nitrite Negative (Negative) Urine Bilirubin (Auto) Negative (Negative) Urine Urobilinogen (Auto) Normal mg/dL (Normal) Urine Leukocyte Esterase (Auto) Moderate (Negative) Urine RBC 1-2 /HPF (0-2) Urine WBC 1-4 /HPF (0-4) Urine Squamous Epithelial Cells Mod /LPF Urine Bacteria Moderate /HPF (0-FEW) Urine Mucus Mod /LPF White Blood Count 5.0 x10^3/uL (4.0-11.0) Red Blood Count 4.13 x10^6/uL (3.50-5.40) Hemoglobin 10.9 g/dL (12.0-15.5) L Hematocrit 33.6 % (36.0-47.0) L Mean Corpuscular Volume 81 fL (79-100) Mean Corpuscular Hemoglobin 27 pg (25-35) Mean Corpuscular Hemoglobin Concent 33 g/dL (31-37) Red Cell Distribution Width 14.3 % (11.5-14.5) Platelet Count 293 x10^3/uL (140-400) Neutrophils (%) (Auto) 53 % (31-73) Lymphocytes (%) (Auto) 33 % (24-48) Monocytes (%) (Auto) 9 % (0-9) Eosinophils (%) (Auto) 4 % (0-3) H Basophils (%) (Auto) 1 % (0-3) Neutrophils # (Auto) 2.7 x10^3/uL (1.8-7.7) Lymphocytes # (Auto) 1.7 x10^3/uL (1.0-4.8) Monocytes # (Auto) 0.4 x10^3/uL (0.0-1.1) Eosinophils # (Auto) 0.2 x10^3/uL (0.0-0.7) Basophils # (Auto) 0.0 x10^3/uL (0.0-0.2) Prothrombin Time 12.3 SEC (11.7-14.0) Prothrombin Time INR 0.9 (0.8-1.1) D-Dimer (Sally) 0.41 ug/mlFEU (0.00-0.50) Sodium Level 143 mmol/L (136-145) Potassium Level 3.6 mmol/L (3.5-5.1) Chloride Level 106 mmol/L (98-107) Carbon Dioxide Level 29 mmol/L (21-32) Anion Gap 8 (6-14) Blood Urea Nitrogen 11 mg/dL (7-20) Creatinine 0.7 mg/dL (0.6-1.0) Estimated GFR (Cockcroft-Gault) 93.2 BUN/Creatinine Ratio 16 (6-20) Glucose Level 132 mg/dL (70-99) H Calcium Level 8.0 mg/dL (8.5-10.1) L Magnesium Level 1.5 mg/dL (1.8-2.4) L Total Bilirubin 0.3 mg/dL (0.2-1.0) Aspartate Amino Transferase (AST) 24 U/L (15-37) Alanine Aminotransferase (ALT) 31 U/L (14-59) Alkaline Phosphatase 85 U/L (46-116) Troponin I High Sensitivity 4 ng/L (4-50) ZT-Hbi-H-Type Natriuretic Peptide 39 pg/mL (0-124) Total Protein 7.0 g/dL (6.4-8.2) Albumin 2.8 g/dL (3.4-5.0) L Albumin/Globulin Ratio 0.7 (1.0-1.7) L POC Urine HCG, Qualitative Hcg negative (Negative) Laboratory Tests 07/08/21 20:10 Laboratory Tests 07/08/21 20:10 Vital Signs: Vital Signs Date Time Temp Pulse Resp B/P (MAP) Pulse Ox O2 Delivery O2 Flow Rate FiO2 07/08/21 22:05 20 99 Room Air 07/08/21 21:53 62 116/58 (77) 07/08/21 19:30 98.0 98.0 EKG: EKG: EKG performed at 2023 by ED nursing staff shows a normal sinus rhythm without ectopy, heart rate 64 bpm, IA interval 0.200, QTc interval 0.454, no acute STEMI, no ACS, no acute ischemia appreciated, EKG interpreted by ED attending physician Dr. Buckner. Radiology/Procedures: Radiology/Procedures: REASON: Left leg swelling, painful PROCEDURE: VENOUS LOWER EXTREMITY LEFT EXAMINATION: US DPLX VENOUS EXTREMITY LOWER LT (LOWER EXTREMITY VENOUS ULTRASOUND) CLINICAL HISTORY: Left lower extremity pain and edema. TECHNIQUE: Sonographic grayscale images obtained of the left lower extremity deep venous system with color flow Doppler, compression, and augmentation techniques as indicated. Images obtained and stored in a permanent archive. COMPARISON: None FINDINGS: No evidence of absent flow or incompressibility within the common femoral vein, femoral vein, or popliteal vein. Visualized calf veins appear patent on limited evaluation. IMPRESSION: No evidence of left lower extremity DVT. Electronically signed by: Martin Malave DO (07/08/2021 9:41 PM) MARILYN STATUS: REG ER ORD. PHYSICIAN: KIRSTEN THOMPSON APRN REASON: Shortness of breath PROCEDURE: CHEST PA & LATERAL Exam: Chest 2 views INDICATION: Shortness of breath, pain TECHNIQUE: Frontal and lateral views the chest Comparisons: 12/21/2020 FINDINGS: The cardiomediastinal silhouette and pulmonary vessels are within normal limits. The lung and pleural spaces are clear. IMPRESSION: No acute cardiopulmonary process. Electronically signed by: Henny Macdonald MD (07/08/2021 9:55 PM) [place] Course & Med Decision Making: Course & Med Decision Making Pertinent Labs and Imaging studies reviewed. (See chart for details) 41-year-old female, vital signs reviewed, presents to the emergency department concerning left lower extremity swelling and pain with intermittent shortness of breath. Patient's physical examination suspicious for left lower extremity DVT, will order venous duplex left lower extremity, blood pressure cardiac monitoring with pulse ox monitoring, saline lock, twelve-lead EKG, PA lateral chest x-ray, CBC, CMP, D-dimer, magnesium level, NT proBNP, PT/INR, high-sensitivity troponin I, urinalysis assay, urine test. Will give p.o. pain medication Patient's sonogram of left lower extremity negative for DVT, chest x-ray unrema rkable, patient's labs are unremarkable except for mag level 1.5, will give magnesium supplement p.o. in the ED today, the patient's cardiac enzymes are negative, EKG is nonconcerning, NT proBNP nonconcerning, D-dimer is nonconcerning. Discussed findings with patient, patient states she would like to have a work excuse for the next 2 to 3 days. Discussed with patient strict follow-up with primary care for ongoing evaluation of left lower extremity swelling and reconsideration of diuretics, patient states she no longer sees a primary care physician and requires a referral, discussed with patient will give a list of area health care providers for her to follow-up with soon call tomorrow for the soonest appointment, return to ER precautions or concerns were reviewed, patient gave verbal understanding of and is amenable to ED discharge planning. Discussed with the patient all findings and diagnostic testing as well as the need to follow-up with their primary care provider for further evaluation and treatment or return to the ED if any new or worsening symptoms. Strict return precautions were also discussed at length, the patient voiced understanding and agreement with the discharge planning. The patient was nontoxic in appearance, in no apparent distress, and hemodynamically stable at the time of disposition. [facility] Disclaimer: [facility] Disclaimer: This electronic medical record was generated, in whole or in part, using a voice recognition dictation system. Departure Departure Impression: Primary Impression: Left leg swelling Disposition: HOME / SELF CARE / HOMELESS Condition: GOOD Referrals: NO PCP (PCP) Additional Instructions: You were seen in the emergency department today because of left leg swelling and pain. You also had complained of intermittent shortness of breath. A sonogram study of your veins of your left leg did not show any signs of blood clots. Your lab work did not indicate any blood clots in your body, your EKG and cardiac enzymes were within normal limits. Your lab work did not show signs of infection, your magnesium level was slightly low and you were given a supplement in the emergency department prior to your discharge. As we discussed it is very important that you follow-up with your primary care doctor to have your leg swelling reevaluated this coming week. I have attached a list of area health care providers for you to establish primary care with, please call tomorrow for the soonest appointment. I have provided the work excuse you have requested. You may take Tylenol and/or Motrin for ongoing leg discomfort. Thank you for visiting our Emergency Department. It was a pleasure taking care of you today in the emergency department and we appreciate you trusting us with your care. If any additional problems come up don't hesitate to return to visit us. Please follow up with your primary care provider so they can plan additional care if needed and know about the problem that you had. If symptoms worsen come back to the Emergency Department. Any concerning symptoms that start such as chest pain, shortness of air, weakness or numbness on one side of the body, running high fevers or any other concerning symptoms return to the ER. [facility] [address] [place] [address] [facility] [address] [place] [address] [facility] [address] [facility] [place] [address] [facility] [address] [place] [address] [facility] [address] [place] [address] [facility] [address] [place] [address] [facility] [address] [place] [address] [facility] [address] [place] [address] [facility] [address] [place] [address] [facility] [address] [place] [address] KIRSTEN THOMPSON APRN July 08, 2021 22:44
[2021-07-08] MEDS ORDERED: MAGNESIUM CHLORIDE ER 64 MG TABLET.ER PO ONE (23:00)
[2021-07-08 23:10] VITALS: BP 119/74
--- NOTE | 2021-07-09 03:51 | EKG ---
[facility] [address] [place] [address] Test Date: 2021-07-08 Test Time: 20:24:16 Pat Name: FRANCISCO ARRIETA Department: Room: Gender: F [employer] Operator: BONNIE : 1980 Requested By: KIRSTEN THOMPSON Order Number: [id number] Reading MD: Kristopher Kang MD Measurements Intervals [place] Rate: 64 P: 31 WA: 200 QRS: 7 QRSD: 96 T: 34 QT: 436 QTc: 454 Interpretive Statements SINUS RHYTHM Electronically Signed On 07-09-2021 8:58:46 CDT by Kristopher Kang MD
== END 2021-07-08 23:15 | disposition home or self-care (01) ==
LOC: ER 19:30
DX: R79.1 Abnormal coagulation profile (principal); R22.42 Localized swelling, mass and lump, left lower limb; R06.02 Shortness of breath; E11.9 Type 2 diabetes mellitus without complications
CPT/HCPCS: 36415; 71046; 80053; 81001; 81025; 83735; 83880; 84484; 85025; 85379; 85610; 87086; 93005; 93971; 99285-25